=== PATIENT | male | born 1970 | race Caucasian/White ===

== ENCOUNTER 2022-05-05 10:54 | Emergency (ER) | payer SELFPAY ==
[2022-05-05] MEDS ORDERED: Tetracaine HCl/PF 0.5% 4 ML Bottle EYEBOTH ONE (11:00)
[2022-05-05] MEDS ORDERED: Diphtheria,Pertussis(Acell),Tetanus Vaccine 0.5 ML Syringe IM ONE (11:00)
[2022-05-05] MEDS ORDERED: Lidocaine/Epineph/Tetracaine 3 ML Syringe TOP ONE (11:22)
== END 2022-05-05 11:38 | disposition home or self-care (01) ==
LOC: MW.ED 10:54
DX: S01.111A Laceration without foreign body of right eyelid and periocular area, initial encounter (principal); I10 Essential (primary) hypertension; W31.2XXA Contact with powered woodworking and forming machines, initial encounter
CPT/HCPCS: 99282; A9270